=== PATIENT | male | born 1985 | race Caucasian/White ===

== ENCOUNTER → 2021-06-29 | Outpatient (CLI) | payer SELFPAY ==
--- NOTE | 2021-06-29 11:31 | ECHOF ---
Referral Reason:R07.9 chest pain MEASUREMENTS -------- HEIGHT: 182.9 cm WEIGHT: 68.5 kg BP: IVSd: 0.8 cm (0.6 - 1.1) LVIDd: 4.0 cm (3.9 - 5.3) LVPWd: 1.3 cm (0.6 - 1.1) IVSs: 1.4 cm LVIDs: 3.2 cm LVPWs: 1.0 cm LA Diam: 2.4 cm (2.7 - 3.8) Ao Diam: 2.4 cm (2.0 - 3.7) MV EXCURSION: 25.714 mm (> 18.000) MV EF SLOPE: 67 mm/s (70 - 150) EPSS: 1.4 cm MV E Preston: 1.01 m/s MV DecT: 175 ms MV A Preston: 1.07 m/s MV E/A Ratio: 0.95 RAP: 5.00 mmHg RVSP: 13.38 mmHg FINDINGS -------- Sinus rhythm. This was a technically good study. LV size, wall thickness and systolic function are normal, with an EF greater than 55%. The left gela tricular size is normal. The right ventricle is normal in size. The left atrial size is normal. The right atrial size is normal. The aortic valve is trileaflet, and appears structurally normal. No aortic stenosis or regurgitation. Mild mitral regurgitation is present. Mild tricuspid regurgitation present. Right ventricular systolic pressure is normal at < 35 mmHg. There is no pulmonic regurgitation present. There is no pericardial effusion. CONCLUSIONS -------- 1. LV size, wall thickness and systolic function are normal, with an EF greater than 55%. 2. The left ventricular size is normal. 3. The right ventricle is normal in size. 4. The left atrial size is normal. 5. The right atrial size is normal. 6. The aortic valve is trileaflet, and appears structurally normal. No aortic stenosis or regurgitati on. 7. Mild mitral regurgitation is present. 8. Mild tricuspid regurgitation present. 9. There is no pulmonic regurgitation present. 10. There is no pericardial effusion. TUNNELING MACHINE OPERATOR: Caitlin Hinson RDCS
--- NOTE | 2021-06-29 14:43 | ECHOS ---
STRESS ECHOCARDIOGRAM INDICATIONS: Chest pain. BASELINE HEART RATE: 70 BASELINE BLOOD PRESSURE: 101/66 MAXIMUM HEART RATE: 165 MAXIMUM BLOOD PRESSURE: 138/74 85% MPHR: 156 100% MPHR: 183 METS: 15.1 MAXIMUM STAGE REACHED: 5 TOTAL EXERCISE TIME: 15:00 CLINICAL INFORMATION: Baseline EKG shows sinus rhythm, normal axis, normal intervals. Patient exercised on Teofilo protocol for a total of 15 minutes, achieving 16 METS, 89% of predicted maximal heart rate, without chest pain or diagnostic ST-segment depression. Baseline echo shows normal left ventricular size, wall motion, systolic function. Post exercise there is normal hyperdynamic response of all segments of myocardium noted. CONCLUSIONS: 1. Excellent exercise tolerance. 2. Negative stress test by EKG criteria. 3. Negative stress echo. MMODL / IJN: [id number] /
== END | disposition home or self-care (01) ==
LOC: RADNMMAIN 09:09
PROVIDERS: ATTEND Family Medicine
DX: I08.1 Rheumatic disorders of both mitral and tricuspid valves (principal)
CPT/HCPCS: 93306; 93351

== ENCOUNTER 2023-12-12 19:15 | Emergency (ER) | payer BC ==
--- NOTE | 2023-12-12 20:05 | ED ---
Head Injury HPI - General Chief complaint: Head Injury Stated complaint: syncope Time Seen by Provider: 12/12/23 19:51 Source: patient, family Mode of arrival: wheelchair Limitations: no limitations - History of Present Illness Initial comments: 38-year-old male presenting for evaluation post head injury. 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 Patient states that he initially felt fine afterwards, he then began to feel a bit nauseous and dizzy so he went to go sit down. The patient lost consciousness, he was told by alberta melendez that he was unconscious for about 20 to 30 seconds. This bystander also states that it appeared that he was "seizing". The patient woke up he vomited. He is having continued nausea and dizziness. He denies any pain at this time. No vision or hearing changes. No numbness tingling or weakness. He states that he does feel a bit "groggy". - Related Data Previous Rx's Medication Instructions Recorded Ondansetron Odt [Zofran Odt] 4 mg PO Q8HR PRN #20 tab 12/12/23 Allergies/Adverse reactions: Allergies Allergy/AdvReac Type Severity Reaction Status Date / Time No Known Allergies Allergy Verified 12/12/23 19:49 Review of Systems ROS Statement: Those systems with pertinent positive or pertinent negative responses have been documented in the HPI. ROS Other: All systems not noted in ROS Statement are negative. Past Medical History Past Medical History: No Reported History History of Any Multi-Drug Resistant Organisms: None Reported Past Surgical History: No Surgical Hx Reported Past Psychological History: No Psychological Hx Reported Smoking Status: Current every day smoker Past Alcohol Use History: None Reported Past Drug Use History: None Reported General Exam Limitations: no limitations General appearance: alert, in no apparent distress Head exam: Present: atraumatic, normocephalic Eye exam: Present: normal appearance, PERRL, EOMI. Absent: periorbital swelling, periorbital tenderness Pupils: Present: normal accommodation Neck exam: Present: normal inspection. Absent: meningismus Respiratory exam: Absent: respiratory distress Cardiovascular Exam: Present: regular rate Extremities exam: Present: normal inspection, full ROM Neurological exam: Present: alert, oriented X3 Expanded Patient oriented to: Present: person, place, time Speech: Present: fluid speech Cranial nerves: EOM's Intact: Normal, Tongue Deviation: Normal Cerebellar function: Finger to Nose: Normal, Heel to Vincent: Normal Motor strength exam: RUE: 5, LUE: 5, RLE: 5, LLE: 5 Eye Response: (4) open spontaneously Motor Response: (6) obeys commands Verbal Response: (5) oriented [place] Total: 15 Psychiatric exam: Present: normal affect, normal mood Skin exam: Present: warm, dry Course Vital Signs 12/12/23 12/12/23 19:44 21:00 Temperature 97.9 F 98.7 F Pulse Rate 66 89 Respiratory 18 16 Rate Blood Pressure 102/38 104/79 O2 Sat by Pulse 99 99 Oximetry Medical Decision Making - Medical Decision Making Was pt. sent in by a medical professional or institution (, PA, ROTARY SHEAR WORKER HELPER, urgent care, hospital, or senior living...) When possible be specific @ -No Did you speak to anyone other than the patient for history (EMS, parent, family, police, friend...)? What history was obtained from this source @ -No Did you review nursing and triage notes (agree or disagree)? Why? @ -I reviewed and agree with nursing and triage notes Were old charts reviewed (outside hosp., previous admission, EMS record, old EKG, old radiological studies, urgent care reports/EKG's, senior living records)? Report findings @ -No old charts were reviewed Differential Diagnosis (chest pain, altered mental status, abdominal pain women, abdominal pain men, vaginal bleeding, weakness, fever, dyspnea, syncope, headache, dizziness, GI bleed, back pain, seizure, CVA, palpatations, mental health, musculoskeletal)? @ -Differential includes uncomplicated head injury, concussion, intracranial hemorrhage, fracture, this is not an all inclusive list EKG interpreted by me (3pts min.). @ -As above X-rays interpreted by me (1pt min.). @ -None done CT interpreted by me (1pt min.). @ -CT shows no acute intracranial abnormality. No evidence of facial bone fracture U/S interpreted by me (1pt. min.). @ -None done What testing was considered but not performed or refused? (CT, X-rays, U/S, labs)? Why? @ -None What meds were considered but not given or refused? Why? @ -None Did you discuss the management of the patient with other professionals (professionals i.e. , PA, ROTARY SHEAR WORKER HELPER, lab, RT, psych nurse, social scientist, correction officer reformatory, teacher, disability hearing officer, showcase maker)? Give summary @ -No Was smoking cessation discussed for >3mins.? @ -No Was critical care preformed (if so, how long)? @ -No Were there social determinants of health that impacted care today? How? (Homelessness, low income, unemployed, alcoholism, drug addiction, transportation, low edu. Level, literacy, decrease access to med. care, detention, rehab)? @ -No Was there de-escalation of care discussed even if they declined (Discuss DNR or withdrawal of care, Hospice)? DNR status @ -No What co-morbidities impacted this encounter? (DM, HTN, Smoking, COPD, CAD, Cancer, CVA, ARF, Chemo, Hep., AIDS, mental health diagnosis, sleep apnea, morbid obesity)? @ -None Was patient admitted / discharged? Hospital course, mention meds given and route, prescriptions, significant lab abnormalities, going to OR and other pertinent info. @ -38-year-old male presenting with chief complaint of head injury. He was hit in the face with a softball this evening. Immediately following the accident he had minimal pain. A few moments later he did lose consciousness for about 20 seconds. No blood thinners. History and physical exam are conducted. GCS is 15 and there are no focal neurological deficits. CT shows no acute intracranial abnormality. No facial bone fracture. Patient is educated on today's findings. Educated on supportive management with concussion. Do not return to softball until cleared by a medical professional. Discharged home. Follow-up with PCP. Report back to ER with any new or worsening symptoms. Discussed return parameters and answered all questions. Patient conveyed verbal understanding and agreed to the plan. I discussed this case in detail with my attending Dr. Palomo Undiagnosed new problem with uncertain prognosis? @ -No Drug Therapy requiring intensive monitoring for toxicity (Heparin, Nitro, Insulin, Cardizem)? @ -No Were any procedures done? @ -No Diagnosis/symptom? @ -Head injury with concussion Acute, or Chronic, or Acute on Chronic? @ -Acute Uncomplicated (without systemic symptoms) or Complicated (systemic symptoms)? @ -Uncomplicated Side effects of treatment? @ -No Exacerbation, Progression, or Severe Exacerbation? @ -No Poses a threat to life or bodily function? How? (Chest pain, [place], [place], pneumonia, PE, COPD, DKA, ARF, appy, cholecystitis, CVA, Diverticulitis, Homicidal, Suicidal, threat to staff... and all critical care pts) @ -Low likelihood Disposition Clinical Impression: Closed head injury, Concussion with loss of consciousness Disposition: HOME SELF-CARE Condition: Fair Instructions (If sedation given, give patient instructions): Concussion (ED), Head Injury (ED) Additional Instructions: Follow-up with PCP, suggestions provided. Report back to ER with any new or worsening symptoms. Alternate Motrin and Tylenol for pain. Take medication as prescribed. Do not return to softball until cleared by medical professional. Prescriptions: Ondansetron Odt [Zofran Odt] 4 mg PO Q8HR PRN #20 tab PRN Reason: Nausea Is patient prescribed a controlled substance at d/c from ED?: No Referrals: None,Stated [Primary Care Provider] - 1-2 days Andre Call MD [STAFF PHYSICIAN] - 1-2 days Anup Amaya MD [STAFF PHYSICIAN] - 1-2 days Time of Disposition: 21:31
--- NOTE | 2023-12-12 20:56 | CT ---
EXAMINATION TYPE: CT brain wo con CT DLP: COMBINED 1238.6 mGycm, Automated exposure control for dose reduction was used. DATE OF EXAM: 12/12/2023 8:45 PM COMPARISON: None. CLINICAL INDICATION:Male, 38 years old with history of hit by softball in face, PASSED OUT AFTER GETT ING HIT IN FACE BY SOFTBALL TECHNIQUE: Brain: Axial CT images of the brain were obtained with coronal and sagittal reformats created and rev iewed. Contrast used: None. Oral contrast used: None. FINDINGS: Extra-axial spaces: No abnormal extra-axial fluid collections. Basilar cisterns are patent. Ventricular system: Within normal limits. Cerebral parenchyma: No increased attenuation to suggest acute intraparenchymal hemorrhage. The gra y-white matter interface appears maintained. No significant atrophy. White matter unremarkable by C T. Cerebellum: No acute abnormality. Mass effect: No evidence of mass effect or midline shift. Intracranial vasculature: Unremarkable Soft tissues: No acute or concerning abnormality. Visualized orbits: Orbital contents appear grossly intact. Calvarium/osseous structures: No evidence of calvarial fracture. Refer to same day CT facial bones re port for further description of findings. Paranasal sinuses and mastoid air cells: Polypoid mucosal thickening, mucous retention cyst or polyp in the left maxillary sinus. No significant fluid is seen. Mastoid air cells are clear. MRI is more sensitive for detecting acute processes such as infarct, and may be considered if clinica lly warranted. IMPRESSION: No acute intracranial CT abnormality.
--- NOTE | 2023-12-12 21:08 | CT ---
EXAMINATION TYPE: CT facial bones wo con CT DLP: COMBINED 1238.6 mGycm, Automated exposure control for dose reduction was used. DATE OF EXAM: 12/12/2023 8:45 PM COMPARISON: 12/12/2023. CLINICAL INDICATION:Male, 38 years old with history of hit by softball in face; [facility], PASSED OUT AFTER GETTING HIT IN FACE BY SOFTBALL TECHNIQUE: Multiple unenhanced axial CT images were obtained of the facial bones soft tissue and bone windows. Coronal, axial and sagittal reformatted images were also provided in soft tissue and bone windows and submitted for interpretation. Additional 3-D reformatted images were obtained on a [employer] workstation. . Contrast used: mL of , (none if empty) Oral contrast used: (none if empty) FINDINGS: There is no evidence of fracture, subluxation, dislocation, or significant soft tissue swelling. The orbital contents are unremarkable.The temporal-mandibular joints appear symmetric. The visualized por tion of the paranasal sinuses appear clear. IMPRESSION: No evidence for facial bone fracture.
[2023-12-12 22:40] VITALS: BP 104/79; PULSE 89; RESP 16; TEMP 98.7
== END 2023-12-12 22:03 | disposition home or self-care (01) ==
LOC: EC 19:15
DX: S06.0X1A Concussion with loss of consciousness of 30 minutes or less, initial encounter (principal); R40.2362 Coma scale, best motor response, obeys commands, at arrival to emergency department; R40.2142 Coma scale, eyes open, spontaneous, at arrival to emergency department; R40.2252 Coma scale, best verbal response, oriented, at arrival to emergency department; F17.200 Nicotine dependence, unspecified, uncomplicated; W21.07XA Struck by softball, initial encounter
CPT/HCPCS: 70450; 70486; 99283